=== PATIENT | male | born 1975 | race Caucasian/White ===

== ENCOUNTER 2021-06-25 14:50 | Inpatient (IN) | payer OTHER, SELFPAY ==
--- NOTE | ~2021-06-25 | CT_ITS ---
EXAMINATION: CT ANGIOGRAM OF THE CHEST WITH AND WITHOUT CONTRAST (CT PULMONARY ANGIOGRAM FOR PE) CLINICAL INFORMATION: Reason for Exam dyspnea, COVID + COMPARISON: Chest radiograph earlier today TECHNIQUE: Prior to contrast administration, noncontrast localization images were obtained. Subsequently, multidetector volumetric imaging was performed from the thoracic inlet to below the diaphragms following the administration of 65 mL Omnipaque 350 intravenous contrast. No contrast reaction reported Sagittal, coronal, and MIP oblique sagittal reformatted images were obtained on the CT workstation, uploaded to PACS, and reviewed. This CT examination was performed using dose optimization techniques as appropriate, variously including the following: *Automated exposure control *Adjustment of mA and/or kV according to patient size (this includes techniques or standardized protocols for targeted exams where dose is matched to indication/reason for exam; i.e. extremities or head) *Use of iterative reconstruction technique Total exam dose-length product 400 mGy-cm FINDINGS: QUALITY OF STUDY/CONTRAST BOLUS: Suboptimal. PULMONARY ARTERIES: No large central or large obvious segmental pulmonary emboli. THORACIC AORTA: No aneurysm or dissection. LUNG: Multifocal groundglass infiltrates are present consistent with Covid 19 infection. PLEURA: No pleural effusion or pneumothorax. MEDIASTINUM: Normal heart size. No pericardial effusion. No hilar or mediastinal lymphadenopathy. No evidence of septal bowing or right heart strain. CHEST WALL/AXILLA: No axillary or internal mammary lymphadenopathy. OSSEOUS STRUCTURES: No acute or suspicious osseous abnormality. There is mild anterior wedging of possibly T12. UPPER ABDOMEN: Unremarkable. No reflux of contrast into the hepatic veins to suggest elevated right heart pressures. CT/CT angio chest PE protocol IMPRESSION: Limited study because of poor quality bolus but no large central or large segmental emboli are seen. Multifocal groundglass infiltrates consistent with given history of Covid infection VTE: Negative, but limited
--- NOTE | ~2021-06-25 | XR_ITS ---
EXAMINATION: XR CHEST CLINICAL INFORMATION: Dyspnea. Covid infection. COMPARISON: None TECHNIQUE: Frontal view of the chest was obtained. FINDINGS: The cardiac and mediastinal contours are normal. The lung volumes are low. There are bilateral patchy infiltrates compatible with Covid infection. There is no pleural effusion or pneumothorax. Bony structures are unremarkable. XR/XR chest 1V IMPRESSION: Low lung volumes and bilateral infiltrates compatible with Covid infection.
--- NOTE | 2021-06-25 14:52 | ECG_ITS ---
Test Reason : DYSPENA Blood Pressure : / mmHG Vent. Rate : 091 BPM Atrial Rate : 091 BPM P-R Int : 162 ms QRS Dur : 088 ms QT Int : 360 ms P-R-T Axes : 023 025 008 degrees QTc Int : 442 ms Normal sinus rhythm Normal ECG No previous ECGs available Referred By: Shanta Luong Electronically Signed By:Chung Queen
[2021-06-25 14:54] VITALS: BP 114/77; BP 120/84; PULSE 70; PULSE 92; RESP 18; TEMP 37.7; O2SAT 82; O2SAT 95; BMI 29.6
--- NOTE | 2021-06-25 14:56 | ED.SOB ---
HPI - SOB/Dyspnea General Chief Complaint: Dyspnea Stated Complaint: COVID Time Seen by Provider: 06/25/21 14:51 Source: patient and EMS Mode of arrival: EMS Limitations: no limitations History of Present Illness HPI Narrative: 06/12 symptoms of COVID started 06/14 COVID + test Thursday dx with pneumonia at [facility] started on 2 INH states his walking O2 sat was 90% no oral medications Rx EMS found patient 82% on RA - up to 94% on 6L NC - vaped prior to illness he is not vaccinated MD elicited complaint: shortness of breath Pertinent past history: other (dx with COVID on 06/14) Onset (ago): day(s) (14) Context: recent illness Timing: progressively worsening Severity: severe Exacerbating factors: exertion and coughing Relieving factors: nothing Known history of: other (states he was told he had pneumonia on Thursday at [facility] given 2 INH) Associated symptoms: fever, cough and nausea/vomiting Treatment prior to arrival: bronchodilator and other (took motrin at 1pm today) Related Data Home Medications Medication Instructions Recorded Confirmed acetaminophen 500 mg tablet 500 mg PO Q8H PRN 06/25/21 06/25/21 albuterol sulfate 90 mcg/actuation 2 puff PO Q4H PRN 06/25/21 06/25/21 aerosol inhaler fluticasone furoate 100 1 puff PO BEDTIME 06/25/21 06/25/21 mcg-vilanterol 25 mcg/dose inhalation powder (Breo Ellipta) ibuprofen 200 mg tablet 600 mg PO Q8H PRN 06/25/21 06/25/21 ondansetron 4 mg disintegrating 1 tab PO Q8H PRN 06/25/21 06/25/21 tablet Allergies Allergy/AdvReac Type Severity Reaction Status Date / Time No Known Allergies Allergy Verified 06/25/21 14:53 Review of Systems Review of Systems: Constitutional : pos Fever, pos Chills ENT/Mouth : No sore throat, No Rhinorrhea, No Swallowing Difficulty Eyes: No Eye Pain, No Swelling, No Redness Cardiovascular : No Chest Pain, positive SOB, No Orthopnea, no Edema Respiratory : pos Cough, No Sputum, No Wheezing, positive dyspnea Gastrointestinal : No Nausea, No Vomiting, No Diarrhea, No abdominal Pain, No Hematochezia, No Melena Genitourinary : No Dysuria, No Urinary Frequency, No Hematuria Musculoskeletal : No joint pain, No Myalgias Skin : No Skin Lesions, No rash Neuro : pos Weakness, No Numbness, No Dizziness, No Headache Psych : No Anxiety/Panic, No Depression Heme/Lymph: No Bruising, No Lymphadenopathy Endocrine : No Polyuria, No Polydipsia All other systems reviewed and are negative [facility] Past Medical History Attestation statement: The following information was validated with the patient. Medical History Patient denies medical problems Social History Social History (Updated 06/25/21 @ 14:57 by Shanta Luong DO) Alcohol intake: current Alcohol intake frequency: a few times a week Patient Tobacco Use Status: Never used Tobacco e-Cigarette/Vaping Use: Currently Using Use of substances other than those prescribed or required for medical reasons: No Advance Directives: No Advance Directives Information Provided: No Physical Exam Vital Signs: Vital Signs: Last Vital Signs Temp 99.8 F 06/25/21 14:54 Pulse 92 06/25/21 14:54 Resp 18 06/25/21 14:54 BP 114/77 06/25/21 14:54 Pulse Ox 95 06/25/21 14:54 Oxygen Flow Rate 6 06/25/21 14:54 BMI result Body Mass Index 29.6 Appearance: Alert. Oriented X3. Mild acute distress. Eyes: Pupils equal, round and reactive to light. ENT: Pharynx normal. Neck: Normal inspection. Neck supple. CVS: Normal heart rate and rhythm. Pulses normal. Respiratory: Mild respiratory distress - tachypnea and some splinting noted. Breath sounds coarse and decreased throughout Abdomen: Soft and non-tender. Skin: Skin warm and clammy. Normal skin color. Normal skin turgor. Extremities: No lower extremity edema. No calf ttp Neuro: Oriented X 3. No motor deficit. No sensory deficit. Course Course Course Narrative: plan to admit will sign out to Dr. Ortega pending CTA MDM - SOB/Dyspnea MDM Narrative Medical decision making narrative: 45 yo male hx of vaping unvaccinated notes he developed URI symptoms on 06/12 found to be positive on 06/14 his breathing has become much worse told at [facility] on Thursday he had pneumonia and sat was 90% walking - given INH to go home with no other medications during illness. At this time found to be hypoxic requiring supplemental O2 will obtain labs, CXR for pneumonia, cultures, IV dexamethasone, he is doing well on 6L NC - empiric antibiotics he is 14 days out from onset. Planned admit given hypoxia. Lab Data Result diagrams: 06/25/21 15:27 06/25/21 15:28 Labs: Lab Results 06/25/21 06/25/21 06/25/21 Range/Units 15:27 15:27 15:27 WBC 5.7 (4.8-10.8) X10*3/uL RBC 4.56 L (4.60-5.80) X10*6/uL Hgb 13.3 L (14.0-18.0) g/dl Hct 39.9 L (42.0-52.0) % MCV 87.5 (80.0-98.0) fL MCH 29.2 (27.0-33.0) pg MCHC 33.3 (31.0-36.0) g/dl RDW 13.1 (11.0-16.0) % Plt Count 360 (160-400) X10*3/uL MPV 9.4 (9.4-12.4) fL Immature Gran % (Auto) 0.7 H (0.0-0.4) % Neut % (Auto) 76.5 H (45-73) % Lymph % (Auto) 15.9 L (20-40) % [place] % (Auto) 6.2 (2-11) % Eos % (Auto) 0.5 (0-4) % Baso % (Auto) 0.2 (0-2) % Lymph # (Auto) 0.9 L (1.2-4.9) X10*3/uL [place] # (Auto) 0.4 (0.1-1.2) X10*3/uL Eos # (Auto) 0.0 (0.0-0.4) X10*3/uL Baso # (Auto) 0.0 (0.0-0.2) X10*3/uL Abs Immat Gran (auto) 0.04 H (0.00-0.03) X10*3/uL Absolute Neuts (auto) 4.3 (2.0-8.3) x10*3/uL Absolute Nucleated RBC 0.000 (0.0-0.012) X10*3/uL Nucleated RBC % (auto) 0.0 (0.0-0.2) /100WBC PT 13.2 H (9.9-13.0) SEC INR 1.2 H (0.9-1.1) APTT 33.5 (24.1-38.0) SEC D-Dimer High Sensitivty 409 NG/ML VBG pH (7.32-7.43) VBG pCO2 mmHg VBG pO2 mmHg VBG HCO3 (22-26) mmol/L VBG O2 Saturation % VBG Base Excess mmol/L Sodium (135-145) mmol/L Potassium (3.3-5.1) mmol/L Chloride (96-108) mmol/L Carbon Dioxide (22-29) mmol/L Anion Gap (12-20) BUN (9-16) mg/dL Creatinine (0.5-1.4) mg/dL Estim Creat Clear Calc Estimated GFR Random Glucose (60-115) mg/dL Lactic Acid (0.5-2.0) mmol/L Calcium (8.4-10.2) mg/dL Magnesium (1.6-2.6) mg/dL Ferritin (20-250) ng/mL Total Bilirubin (0.0-1.0) mg/dL Direct Bilirubin (0.0-0.5) mg/dL AST (5-37) U/L ALT (0-40) U/L Alkaline Phosphatase (39-117) U/L Lactate Dehydrogenase (118-273) U/L Total Creatine Kinase (38-174) U/L Troponin I High Sens 5.7 (<3.5-35.0) ng/L C-Reactive Protein (< or = 0.50) mg/dL Total Protein (6.5-8.0) g/dL Albumin (3.5-5.0) g/dL Procalcitonin ng/mL COVID-19 (GABE) (Negative) COVID-19 Clin Com 06/25/21 06/25/21 06/25/21 Range/Units 15:27 15:27 15:28 WBC (4.8-10.8) X10*3/uL RBC (4.60-5.80) X10*6/uL Hgb (14.0-18.0) g/dl Hct (42.0-52.0) % MCV (80.0-98.0) fL MCH (27.0-33.0) pg MCHC (31.0-36.0) g/dl RDW (11.0-16.0) % Plt Count (160-400) X10*3/uL MPV (9.4-12.4) fL Immature Gran % (Auto) (0.0-0.4) % Neut % (Auto) (45-73) % Lymph % (Auto) (20-40) % [place] % (Auto) (2-11) % Eos % (Auto) (0-4) % Baso % (Auto) (0-2) % Lymph # (Auto) (1.2-4.9) X10*3/uL [place] # (Auto) (0.1-1.2) X10*3/uL Eos # (Auto) (0.0-0.4) X10*3/uL Baso # (Auto) (0.0-0.2) X10*3/uL Abs Immat Gran (auto) (0.00-0.03) X10*3/uL Absolute Neuts (auto) (2.0-8.3) x10*3/uL Absolute Nucleated RBC (0.0-0.012) X10*3/uL Nucleated RBC % (auto) (0.0-0.2) /100WBC PT (9.9-13.0) SEC INR (0.9-1.1) APTT (24.1-38.0) SEC D-Dimer High Sensitivty NG/ML VBG pH (7.32-7.43) VBG pCO2 mmHg VBG pO2 mmHg VBG HCO3 (22-26) mmol/L VBG O2 Saturation % VBG Base Excess mmol/L Sodium 138 (135-145) mmol/L Potassium 4.0 (3.3-5.1) mmol/L Chloride 103 (96-108) mmol/L Carbon Dioxide 25 (22-29) mmol/L Anion Gap 14 (12-20) BUN 13 (9-16) mg/dL Creatinine 0.78 (0.5-1.4) mg/dL Estim Creat Clear Calc 127.9 Estimated GFR > 60 Random Glucose 99 (60-115) mg/dL Lactic Acid (0.5-2.0) mmol/L Calcium 8.1 L (8.4-10.2) mg/dL Magnesium 2.0 (1.6-2.6) mg/dL Ferritin 1001 H (20-250) ng/mL Total Bilirubin 0.5 (0.0-1.0) mg/dL Direct Bilirubin 0.2 (0.0-0.5) mg/dL AST 37 (5-37) U/L ALT 19 (0-40) U/L Alkaline Phosphatase 72 (39-117) U/L Lactate Dehydrogenase 541 H (118-273) U/L Total Creatine Kinase 85 (38-174) U/L Troponin I High Sens (<3.5-35.0) ng/L C-Reactive Protein 21.17 H (< or = 0.50) mg/dL Total Protein 5.6 L (6.5-8.0) g/dL Albumin 3.3 L (3.5-5.0) g/dL Procalcitonin 0.15 ng/mL COVID-19 (GABE) Negative (Negative) COVID-19 Clin Com See Note 06/25/21 06/25/21 Range/Units 15:28 15:35 WBC (4.8-10.8) X10*3/uL RBC (4.60-5.80) X10*6/uL Hgb (14.0-18.0) g/dl Hct (42.0-52.0) % MCV (80.0-98.0) fL MCH (27.0-33.0) pg MCHC (31.0-36.0) g/dl RDW (11.0-16.0) % Plt Count (160-400) X10*3/uL MPV (9.4-12.4) fL Immature Gran % (Auto) (0.0-0.4) % Neut % (Auto) (45-73) % Lymph % (Auto) (20-40) % [place] % (Auto) (2-11) % Eos % (Auto) (0-4) % Baso % (Auto) (0-2) % Lymph # (Auto) (1.2-4.9) X10*3/uL [place] # (Auto) (0.1-1.2) X10*3/uL Eos # (Auto) (0.0-0.4) X10*3/uL Baso # (Auto) (0.0-0.2) X10*3/uL Abs Immat Gran (auto) (0.00-0.03) X10*3/uL Absolute Neuts (auto) (2.0-8.3) x10*3/uL Absolute Nucleated RBC (0.0-0.012) X10*3/uL Nucleated RBC % (auto) (0.0-0.2) /100WBC PT (9.9-13.0) SEC INR (0.9-1.1) APTT (24.1-38.0) SEC D-Dimer High Sensitivty NG/ML VBG pH 7.46 H (7.32-7.43) VBG pCO2 33 mmHg VBG pO2 106 mmHg VBG HCO3 24 (22-26) mmol/L VBG O2 Saturation 98.0 % VBG Base Excess 1.4 mmol/L Sodium (135-145) mmol/L Potassium (3.3-5.1) mmol/L Chloride (96-108) mmol/L Carbon Dioxide (22-29) mmol/L Anion Gap (12-20) BUN (9-16) mg/dL Creatinine (0.5-1.4) mg/dL Estim Creat Clear Calc Estimated GFR Random Glucose (60-115) mg/dL Lactic Acid 1.0 (0.5-2.0) mmol/L Calcium (8.4-10.2) mg/dL Magnesium (1.6-2.6) mg/dL Ferritin (20-250) ng/mL Total Bilirubin (0.0-1.0) mg/dL Direct Bilirubin (0.0-0.5) mg/dL AST (5-37) U/L ALT (0-40) U/L Alkaline Phosphatase (39-117) U/L Lactate Dehydrogenase (118-273) U/L Total Creatine Kinase (38-174) U/L Troponin I High Sens (<3.5-35.0) ng/L C-Reactive Protein (< or = 0.50) mg/dL Total Protein (6.5-8.0) g/dL Albumin (3.5-5.0) g/dL Procalcitonin ng/mL COVID-19 (GABE) (Negative) COVID-19 Clin Com ECG Data Attestation: I personally reviewed and interpreted this ECG as follows: ECG interpretation date: 06/25/21 ECG interpretation time: 15:16 Interpretation: Rate: 91 Rhythm: NSR [place]: normal Normal P waves. Normal [place]. Normal QRS complex. ST T wave : normal no KORY qTC: normal prior studies: no acute ischemia The study has been interpreted contemporaneously by me. . Critical Care Time Critical Care Time Critical Care Time: Yes Total Critical Care Time: 45 Attestation: review of records, supplemental O2 I attest to this time spent taking care of the patient Discharge Plan Discharge Clinical Impression: Pneumonia due to 2019-nCoV, Hypoxia Patient Disposition: Admitted As Inpatient
[2021-06-25 15:37] LABS: MANUAL DIFF FLAG NO
[2021-06-25 15:42] LABS: Basophils Percent Auto 0.2 % (0-2); Eosinophils Percent Auto 0.5 % (0-4); Hematocrit 39.9 % (42.0-52.0); Hemoglobin 13.3 g/dl (14.0-18.0); Imm Gran Abs Auto 0.04 X10*3/uL (0.00-0.03); Imm Gran Pct Auto 0.7 % (0.0-0.4); Lymphocytes Absolute Auto 0.9 X10*3/uL (1.2-4.9); Lymphocytes Percent Auto 15.9 % (20-40); Mean Corpuscular HGB Conc 33.3 g/dl (31.0-36.0); Mean Corpuscular Hemoglobin 29.2 pg (27.0-33.0); Mean Corpuscular Volume 87.5 fL (80.0-98.0); Mean Platelet Volume 9.4 fL (9.4-12.4); Monocytes Absolute Auto 0.4 X10*3/uL (0.1-1.2); Monocytes Percent Auto 6.2 % (2-11); Neutrophils Absolute Auto 4.3 x10*3/uL (2.0-8.3); Neutrophils Percent Auto 76.5 % (45-73); Platelet Count 360 X10*3/uL (160-400); Red Blood Count 4.56 X10*6/uL (4.60-5.80); Red Cell Distribution Width 13.1 % (11.0-16.0); White Blood Count 5.7 X10*3/uL (4.8-10.8)
[2021-06-25 15:43] LABS: VBG Base Excess 1.4 mmol/L; VBG HCO3 24 mmol/L (22-26); VBG pCO2 33 mmHg; VBG pH 7.46 (7.32-7.43); VBG pO2 106 mmHg
[2021-06-25 15:46] LABS: Venous Blood Gas Refer to POC result
[2021-06-25 15:47] LABS: D Dimer High Sensitivity 409 NG/ML
[2021-06-25 15:58] LABS: COVID-19 Test Negative (Negative); IDNOW Serial# 08D9AD1C
[2021-06-25 16:02] LABS: Troponin-I High Sensitivity 5.7 ng/L (<3.5-35.0)
[2021-06-25 16:03] LABS: INTERNATIONAL NORM RATIO 1.2 (0.9-1.1); Prothrombin Time 13.2 SEC (9.9-13.0)
[2021-06-25 16:04] LABS: Alanine Aminotransferase 19 U/L (0-40); Albumin Level 3.3 g/dL (3.5-5.0); Alkaline Phosphatase 72 U/L (39-117); Anion Gap 14 (12-20); Aspartate Amino Transferase 37 U/L (5-37); Bilirubin Direct 0.2 mg/dL (0.0-0.5); Bilirubin Total 0.5 mg/dL (0.0-1.0); Blood Urea Nitrogen 13 mg/dL (9-16); C Reactive Protein 21.17 mg/dL (< or = 0.50); Calcium 8.1 mg/dL (8.4-10.2); Carbon Dioxide 25 mmol/L (22-29); Chloride 103 mmol/L (96-108); Creatinine Clr Calc Pharmacy 127.9; Estimated Glomerular Filt Rate > 60; Glucose Random 99 mg/dL (60-115); Sodium 138 mmol/L (135-145); Total Protein 5.6 g/dL (6.5-8.0)
[2021-06-25 16:05] LABS: Partial Thromboplastin Time 33.5 SEC (24.1-38.0)
[2021-06-25 16:13] LABS: Lactate Dehydrogenase 541 U/L (118-273)
[2021-06-25 16:18] LABS: Procalcitonin 0.15 ng/mL
[2021-06-25] MEDS: dexAMETHasone sod phosphate 4 MG/ML VIAL 6 MG IVPUSH (16:19)
[2021-06-25 16:20] LABS: Ferritin 1001 ng/mL (20-250)
[2021-06-25] MEDS: cefTRIAXone sodium 1 GM in 0.9 % Sodium Chloride 50 ML IV (16:21)
--- NOTE | 2021-06-25 16:24 | PHA.MEDREC ---
Pharmacy Consult ? Medication Reconciliation Pharmacy has completed the medication reconciliation. There are no remarkable issues for provider's attention. Shawnee Love, MarcellaD
[2021-06-25 16:27] VITALS: BP 113/72; PULSE 79; RESP 18; TEMP 37.1; O2SAT 95
--- NOTE | 2021-06-25 17:07 | PC.NURSE ---
pt continues to rest in bed. NC reduced to 4L p/t CTA of chest. Skin pwd. unlabored resp at rest in bed.
[2021-06-25] MEDS: iohexoL 350 MG/ML 100 ML INFUS..BTL IV (17:23)
[2021-06-25] MEDS: Azithromycin 500 MG in 0.9 % Sodium Chloride 250 ML 125 MG IV (17:58)
[2021-06-25 17:59] VITALS: BP 118/81; PULSE 76; RESP 18; TEMP 37.1; O2SAT 95
--- NOTE | 2021-06-25 18:24 | PC.NURSE ---
pt positioned prone. tolerating well.
--- NOTE | 2021-06-25 19:55 | P.HPHOSP_ITS ---
History of Present Illness Date of Service: 06/25/21 Chief Complaint: SOB 45-year-old male with no significant past medical history who tested positive for COVID-19 on presented to the hospital today with a chief complaint of shortness of breath/ hypoxia. Patient reported that he was initially doing okay but lately he become more and more short of breath and extremely tired associated dry cough. Any checked his oxygen at home med was in 70s; hence decided to come to the hospital for furth er evaluation. Denies any chest pain palpitations lightheadedness or dizziness. Denies any fever chills. Denies any nausea vomiting diarrhea. Denies any change in his sense of taste or smell. Review of all other systems is negative except mentioned above ER course: Per ER team patient on presentation noted to be saturating 82% on room air; placed on supplemental oxygen with improvement in oxygenation to mid 90s; patient was not in respiratory distress; CT chest showed no evidence of pulmonary embolism but noted COVID pneumonia. Given dexamethasone. Admitted for further management. [facility] Medical History Patient denies medical problems Pertinent family history: reviewed Social History Household Members: Significant Other Housing: House Do you presently have visiting nurse or other home services: No Alcohol intake: current Alcohol intake frequency: a few times a week Patient Tobacco Use Status: Never used Tobacco e-Cigarette/Vaping Use: Currently Using service: No Current occupational status: employed Meds Allergies Allergy/AdvReac Type Severity Reaction Status Date / Time No Known Allergies Allergy Verified 06/25/21 14:53 Active Medications: Current Medications Acetaminophen (Acetaminophen 325 Mg Tablet) 650 mg PO Q6H PRN PRN Reason: Pain, Mild (Pain Scale 1-3) Enoxaparin Sodium (Enoxaparin Sodium 40 Mg/0.4 Ml Syringe) 40 mg SUBCUT Q24H YAMILKA Vancomycin HCl 1,000 mg/ (Sodium Chloride) 270 mls @ 270 mls/hr IV Q12H YAMILKA Piperacillin Sod/Tazobactam (Sod 3.375 gm/ Sodium Chloride) 50 mls @ 100 mls/hr IV Q6H YAMILKA Melatonin (Melatonin 3 Mg Tablet) 6 mg PO BEDTIME PRN PRN Reason: Insomnia Morphine Sulfate (Morphine Sulfate 4 Mg/Ml Cartridge) 1 mg IVPUSH Q4H PRN; Protocol PRN Reason: Pain, SOB Pharmacy Consult (Consult Rx Perform Med Rec) 1 each MISCELLANE ONCE PRN PRN Reason: Consult order Pharmacy Consult (Consult Rx Vancomycin Dosing) 1 each MISCELLANE DAILY PRN PRN Reason: Consult order Senna (Sennosides 8.6 Mg Tablet) 17.2 mg PO BEDTIME PRN PRN Reason: Constipation Sodium Chloride (0.9 % Sodium Chloride Flush 3 Ml Syringe) 3 ml IVFLUSH [facility] Home Medications Medication Instructions Recorded Confirmed Last Taken Type acetaminophen 500 mg tablet 500 mg PO Q8H PRN 06/25/21 06/25/21 06/25/21 History albuterol sulfate 90 mcg/actuation 2 puff PO Q4H PRN 06/25/21 06/25/21 Unknown History aerosol inhaler fluticasone furoate 100 1 puff PO BEDTIME 06/25/21 06/25/21 06/24/21 History mcg-vilanterol 25 mcg/dose inhalation powder (Breo Ellipta) ibuprofen 200 mg tablet 600 mg PO Q8H PRN 06/25/21 06/25/21 06/25/21 History ondansetron 4 mg disintegrating 1 tab PO Q8H PRN 06/25/21 06/25/21 Unknown History tablet Physical Exam Vital Signs and Narrative: Vital Signs: Last Vital Signs Temp 98.8 F 06/25/21 17:59 Pulse 76 06/25/21 17:59 Resp 18 06/25/21 17:59 BP 118/81 06/25/21 17:59 Pulse Ox 95 06/25/21 17:59 Oxygen Flow Rate 6 06/25/21 14:54 BMI result Body Mass Index 29.6 Gen: Appears be in no acute distress HEENT: NCAT, Moist mucosa. Pulmonary: coarse breath sounds, fair air entry CVS: Normal S1-S2 Abdomen: BS+, Soft, Nontender Extremities: Warm well perfused Neuro: Alert and awake. Results Labs CBC and Chem 7: 06/29/21 06:15 06/29/21 06:15 Labs: Laboratory Results - last 24 hr 06/25/21 06/25/21 06/25/21 15:27 15:27 15:27 MCV 87.5 MCH 29.2 MCHC 33.3 RDW 13.1 Plt Count 360 MPV 9.4 Immature Gran % (Auto) 0.7 H Neut % (Auto) 76.5 H Lymph % (Auto) 15.9 L [place] % (Auto) 6.2 Eos % (Auto) 0.5 Baso % (Auto) 0.2 Lymph # (Auto) 0.9 L [place] # (Auto) 0.4 Eos # (Auto) 0.0 Baso # (Auto) 0.0 Abs Immat Gran (auto) 0.04 H Absolute Neuts (auto) 4.3 Absolute Nucleated RBC 0.000 Nucleated RBC % (auto) 0.0 PT 13.2 H INR 1.2 H APTT 33.5 D-Dimer High Sensitivty 409 VBG pH VBG pCO2 VBG pO2 VBG HCO3 VBG O2 Saturation VBG Base Excess Anion Gap Estim Creat Clear Calc Estimated GFR Random Glucose Lactic Acid Calcium Magnesium Ferritin Total Bilirubin Direct Bilirubin AST ALT Alkaline Phosphatase Lactate Dehydrogenase Total Creatine Kinase Troponin I High Sens 5.7 C-Reactive Protein Total Protein Albumin Procalcitonin COVID-19 (GABE) COVID-Fluther 06/25/21 06/25/21 06/25/21 15:27 15:27 15:28 MCV MCH MCHC RDW Plt Count MPV Immature Gran % (Auto) Neut % (Auto) Lymph % (Auto) [place] % (Auto) Eos % (Auto) Baso % (Auto) Lymph # (Auto) [place] # (Auto) Eos # (Auto) Baso # (Auto) Abs Immat Gran (auto) Absolute Neuts (auto) Absolute Nucleated RBC Nucleated RBC % (auto) PT INR APTT D-Dimer High Sensitivty VBG pH VBG pCO2 VBG pO2 VBG HCO3 VBG O2 Saturation VBG Base Excess Anion Gap 14 Estim Creat Clear Calc 127.9 Estimated GFR > 60 Random Glucose 99 Lactic Acid Calcium 8.1 L Magnesium 2.0 Ferritin 1001 H Total Bilirubin 0.5 Direct Bilirubin 0.2 AST 37 ALT 19 Alkaline Phosphatase 72 Lactate Dehydrogenase 541 H Total Creatine Kinase 85 Troponin I High Sens C-Reactive Protein 21.17 H Total Protein 5.6 L Albumin 3.3 L Procalcitonin 0.15 COVID-19 (GABE) Negative COVID-19 Clin Com See Note 06/25/21 06/25/21 15:28 15:35 MCV MCH MCHC RDW Plt Count MPV Immature Gran % (Auto) Neut % (Auto) Lymph % (Auto) [place] % (Auto) Eos % (Auto) Baso % (Auto) Lymph # (Auto) [place] # (Auto) Eos # (Auto) Baso # (Auto) Abs Immat Gran (auto) Absolute Neuts (auto) Absolute Nucleated RBC Nucleated RBC % (auto) PT INR APTT D-Dimer High Sensitivty VBG pH 7.46 H VBG pCO2 33 VBG pO2 106 VBG HCO3 24 VBG O2 Saturation 98.0 VBG Base Excess 1.4 Anion Gap Estim Creat Clear Calc Estimated GFR Random Glucose Lactic Acid 1.0 Calcium Magnesium Ferritin Total Bilirubin Direct Bilirubin AST ALT Alkaline Phosphatase Lactate Dehydrogenase Total Creatine Kinase Troponin I High Sens C-Reactive Protein Total Protein Albumin Procalcitonin COVID-19 (GABE) COVID-19 Clin Com Imaging Radiologist's Impressions: Impressions Chest X-Ray 06/25/21 15:35 IMPRESSION: Low lung volumes and bilateral infiltrates compatible with Covid infection. Chest CTA 06/25/21 17:32 IMPRESSION: Limited study because of poor quality bolus but no large central or large segmental emboli are seen. Multifocal groundglass infiltrates consistent with given history of Covid infection VTE: Negative, but limited Assessment and Plan (1) Pneumonia due to 2019-nCoV: Status: Acute (2) Hypoxia: Status: Acute 45-year-old male with no significant past medical history was tested positive for COVID-19 as outpatient presented to the hospital today with a chief complaint of shortness of breath/ hypoxia; noted to have COVID-19 pneumonia. Admitted for further management. Acute hypoxic respiratory failure: In the setting of COVID-19 pneumonia. Placed on supplemental oxygen. Currently not in respiratory distress. Supportive care. COVID-19 pneumonia: Continue ceftriaxone and azithromycin. Patient also started on dexamethasone. Id consult for further recommendations. DVT prophylaxis: Lovenox Code status: Full code Quality Stroke Does the patient have a stroke diagnosis?: No VTE Prior VTE?: No VTE Risk Level:: Medical - moderate - high VTE Device Contraindication: Treatment Not Indicated VTE Drug Contraindication: N/A - Med Ordered
[2021-06-25] MEDS: Piperacillin Sodium/Tazobactam 3.375 GM in 0.9 % Sodium Chloride 50 ML IV (21:14)
[2021-06-25] MEDS: vancomycin HCL 1,250 MG in 0.9 % Sodium Chloride 250 ML 166.67 MG IV (21:15)
[2021-06-25] MEDS: Enoxaparin Sodium 40 MG/0.4 ML SYRINGE SUBCUT (21:16)
[2021-06-26] MEDS: 0.9 % Sodium Chloride Flush 3 ML SYRINGE IVFLUSH ×5 (01:09→23:52)
[2021-06-26 03:27] VITALS: BP 128/97; PULSE 64; RESP 27; TEMP 36.7; O2SAT 94
--- NOTE | 2021-06-26 03:51 | PC.NURSE ---
Hospitalist and RT notified that pt desatted to low to mid 80s with mild exertion and was unable to recover while on a NC @ 6 lpm. Pt switched to a venti @ 8 lpm and 40%, increasing to 89%.
--- NOTE | 2021-06-26 04:29 | PC.NURSE ---
The pt stood at the bedside to void, on room air, and when he got back into bed his O2 sat had dropped to 85%. As he got back into bed and placed the nasal cannula back on at 4L his O2 sat's remained 85% for 5-10 minutes, prompting me to initiate venti mask at 8L/40%. MD Berg was notified who requested pt be placed on CPAP which pt said he is supposed to wear at night. RT came to bedside and placed pt on Mc at 14L, humidified. Pt sat's are now 97%, RR 20 and non-labored.
[2021-06-26 07:16] VITALS: BP 148/99; PULSE 75; RESP 22; TEMP 37; O2SAT 92
[2021-06-26 08:01] LABS: Hemoglobin 13.8 g/dl (14.0-18.0); Imm Gran Abs Auto 0.04 X10*3/uL (0.00-0.03); Imm Gran Pct Auto 0.8 % (0.0-0.4); Lymphocytes Absolute Auto 0.9 X10*3/uL (1.2-4.9); Lymphocytes Percent Auto 18.9 % (20-40); Mean Corpuscular HGB Conc 32.9 g/dl (31.0-36.0); Mean Corpuscular Hemoglobin 28.9 pg (27.0-33.0); Mean Corpuscular Volume 88.1 fL (80.0-98.0); Mean Platelet Volume 9.1 fL (9.4-12.4); Monocytes Absolute Auto 0.3 X10*3/uL (0.1-1.2); Monocytes Percent Auto 6.8 % (2-11); Neutrophils Absolute Auto 3.5 x10*3/uL (2.0-8.3); Neutrophils Percent Auto 73.5 % (45-73); Platelet Count 408 X10*3/uL (160-400); Red Blood Count 4.77 X10*6/uL (4.60-5.80); Red Cell Distribution Width 13.1 % (11.0-16.0); SCAN SMEAR FLAG 1; White Blood Count 4.7 X10*3/uL (4.8-10.8)
[2021-06-26 08:18] LABS: Anion Gap 15 (12-20); Blood Urea Nitrogen 15 mg/dL (9-16); Calcium 8.6 mg/dL (8.4-10.2); Carbon Dioxide 26 mmol/L (22-29); Chloride 105 mmol/L (96-108); Creatinine Clr Calc Pharmacy 131.2; Estimated Glomerular Filt Rate > 60; Glucose Random 149 mg/dL (60-115); Potassium 4.4 mmol/L (3.3-5.1); Sodium 142 mmol/L (135-145)
[2021-06-26] MEDS: dexAMETHasone 6 MG TABLET PO (08:19)
[2021-06-26 08:30] LABS: MANUAL DIFF FLAG SCAN
[2021-06-26 08:31] LABS: SLIDE REVIEW VERIFIED
--- NOTE | 2021-06-26 11:22 | MHC.CM.PN ---
Patient lives in a house with his Girlfriend/Little and he is functionally independent. Home no services is the goal for dc and CM has initiated and will follow for dc planning.PCP is DR. Vincent Antonio.
--- NOTE | 2021-06-26 12:51 | HO.PM.IMPN ---
Subjective Subjective Date of Service: 06/26/21 Interval History: cc: sob interval history: still sob Cardiovascular Cardiovascular: Reports no additional cardiovascular complaints Gastrointestinal Gastrointestinal: Reports no additional gastrointestinal complaints Physical Exam Vital Signs: Vital Signs: Last Vital Signs Temp 98.6 F 06/26/21 07:16 Pulse 75 06/26/21 07:16 Resp 22 H 06/26/21 07:16 BP 148/99 H 06/26/21 07:16 Pulse Ox 92 06/26/21 07:16 Oxygen Flow Rate 6 06/25/21 14:54 BMI result Body Mass Index 29.6 General: AO X 3, dyspneic, diaphoretic Resp: Crackles bilateral, mild accessory muscles used CVS: S1,S2,RRR GI: soft, non tender, non distended Neuro: motor grossly intact, alert Psych: appropriate affect, appropriate insight Objective Data Active Medications Acetaminophen (Acetaminophen 325 Mg Tablet) 650 mg PO Q6H PRN PRN Reason: Pain, Mild (Pain Scale 1-3) Albuterol Sulfate (Albuterol Sulfate 90 Mcg 8 Gm Inhaler) 2 puff INHALE Q4H PRN PRN Reason: dyspnea Dexamethasone (Dexamethasone 6 Mg Tablet) 6 mg PO DAILY [facility] Last Admin: 06/26/21 08:19 Dose: 6 mg Documented by: CHON Enoxaparin Sodium (Enoxaparin Sodium 40 Mg/0.4 Ml Syringe) 40 mg SUBCUT Q24H [facility] Last Admin: 06/25/21 21:16 Dose: 40 mg Documented by: XIOMY Melatonin (Melatonin 3 Mg Tablet) 6 mg PO BEDTIME PRN PRN Reason: Insomnia Morphine Sulfate (Morphine Sulfate 4 Mg/Ml Cartridge) 1 mg IVPUSH Q4H PRN; Protocol PRN Reason: Pain, SOB Pharmacy Consult (Consult Rx Perform Med Rec) 1 each MISCELLANE ONCE PRN PRN Reason: Consult order Pharmacy Consult (Consult Rx Vancomycin Dosing) 1 each MISCELLANE DAILY PRN PRN Reason: Consult order Senna (Sennosides 8.6 Mg Tablet) 17.2 mg PO BEDTIME PRN PRN Reason: Constipation Sodium Chloride (0.9 % Sodium Chloride Flush 3 Ml Syringe) 3 ml IVFLUSH QSHIFT [facility] Last Admin: 06/26/21 07:19 Dose: 3 ml Documented by: HO.COOPEB Labs CBC & Chem 7: 06/26/21 07:48 06/26/21 07:48 Labs: Laboratory Results - last 24 hr 06/25/21 06/25/21 06/25/21 15:27 15:27 15:27 MCV 87.5 MCH 29.2 MCHC 33.3 RDW 13.1 Plt Count 360 MPV 9.4 Immature Gran % (Auto) 0.7 H Neut % (Auto) 76.5 H Lymph % (Auto) 15.9 L [place] % (Auto) 6.2 Eos % (Auto) 0.5 Baso % (Auto) 0.2 Lymph # (Auto) 0.9 L [place] # (Auto) 0.4 Eos # (Auto) 0.0 Baso # (Auto) 0.0 Abs Immat Gran (auto) 0.04 H Absolute Neuts (auto) 4.3 Absolute Nucleated RBC 0.000 Nucleated RBC % (auto) 0.0 Smear Tech's Comments PT 13.2 H INR 1.2 H APTT 33.5 D-Dimer High Sensitivty 409 VBG pH VBG pCO2 VBG pO2 VBG HCO3 VBG O2 Saturation VBG Base Excess Anion Gap Estim Creat Clear Calc Estimated GFR Random Glucose Lactic Acid Calcium Magnesium Ferritin Total Bilirubin Direct Bilirubin AST ALT Alkaline Phosphatase Lactate Dehydrogenase Total Creatine Kinase Troponin I High Sens 5.7 C-Reactive Protein Total Protein Albumin Procalcitonin COVID-19 ([facility]) COVID-19 Clin Com 06/25/21 06/25/21 06/25/21 15:27 15:27 15:28 MCV MCH MCHC RDW Plt Count MPV Immature Gran % (Auto) Neut % (Auto) Lymph % (Auto) [place] % (Auto) Eos % (Auto) Baso % (Auto) Lymph # (Auto) [place] # (Auto) Eos # (Auto) Baso # (Auto) Abs Immat Gran (auto) Absolute Neuts (auto) Absolute Nucleated RBC Nucleated RBC % (auto) Smear Tech's Comments PT INR APTT D-Dimer High Sensitivty VBG pH VBG pCO2 VBG pO2 VBG HCO3 VBG O2 Saturation VBG Base Excess Anion Gap 14 Estim Creat Clear Calc 127.9 Estimated GFR > 60 Random Glucose 99 Lactic Acid Calcium 8.1 L Magnesium 2.0 Ferritin 1001 H Total Bilirubin 0.5 Direct Bilirubin 0.2 AST 37 ALT 19 Alkaline Phosphatase 72 Lactate Dehydrogenase 541 H Total Creatine Kinase 85 Troponin I High Sens C-Reactive Protein 21.17 H Total Protein 5.6 L Albumin 3.3 L Procalcitonin 0.15 COVID-19 ([facility]) Negative COVID-19 Clin Com See Note 06/25/21 06/25/21 06/26/21 15:28 15:35 07:48 MCV 88.1 MCH 28.9 MCHC 32.9 RDW 13.1 Plt Count 408 H MPV 9.1 L Immature Gran % (Auto) 0.8 H Neut % (Auto) 73.5 H Lymph % (Auto) 18.9 L [place] % (Auto) 6.8 Eos % (Auto) 0.0 Baso % (Auto) 0.0 Lymph # (Auto) 0.9 L [place] # (Auto) 0.3 Eos # (Auto) 0.0 Baso # (Auto) 0.0 Abs Immat Gran (auto) 0.04 H Absolute Neuts (auto) 3.5 Absolute Nucleated RBC 0.000 Nucleated RBC % (auto) 0.0 Smear Tech's Comments VERIFIED PT INR APTT D-Dimer High Sensitivty VBG pH 7.46 H VBG pCO2 33 VBG pO2 106 VBG HCO3 24 VBG O2 Saturation 98.0 VBG Base Excess 1.4 Anion Gap Estim Creat Clear Calc Estimated GFR Random Glucose Lactic Acid 1.0 Calcium Magnesium Ferritin Total Bilirubin Direct Bilirubin AST ALT Alkaline Phosphatase Lactate Dehydrogenase Total Creatine Kinase Troponin I High Sens C-Reactive Protein Total Protein Albumin Procalcitonin COVID-19 ([facility]) COVID-19 Clin Com 06/26/21 07:48 MCV MCH MCHC RDW Plt Count MPV Immature Gran % (Auto) Neut % (Auto) Lymph % (Auto) [place] % (Auto) Eos % (Auto) Baso % (Auto) Lymph # (Auto) [place] # (Auto) Eos # (Auto) Baso # (Auto) Abs Immat Gran (auto) Absolute Neuts (auto) Absolute Nucleated RBC Nucleated RBC % (auto) Smear Tech's Comments PT INR APTT D-Dimer High Sensitivty VBG pH VBG pCO2 VBG pO2 VBG HCO3 VBG O2 Saturation VBG Base Excess Anion Gap 15 Estim Creat Clear Calc 131.2 Estimated GFR > 60 Random Glucose 149 H D Lactic Acid Calcium 8.6 D Magnesium Ferritin Total Bilirubin Direct Bilirubin AST ALT Alkaline Phosphatase Lactate Dehydrogenase Total Creatine Kinase Troponin I High Sens C-Reactive Protein Total Protein Albumin Procalcitonin COVID-19 ([facility]) COVID-19 Clin Com Assessment and Plan (1) Pneumonia due to 2019-nCoV: Status: Acute Assessment and Plan: 45M with known COVID, presented with sob Acute hypoxic respiratory failure secondary to COVID pneumonia Continue dexamethasone O2 support Follow-up ID No evidence of bacterial superinfection will discontinue antibiotics DVT prophylaxis with Lovenox Quality Stroke Does the patient have a stroke diagnosis?: No VTE Prior VTE?: No VTE Risk Level:: Medical - moderate - high VTE Device Contraindication: Treatment Not Indicated VTE Drug Contraindication: N/A - Med Ordered
--- NOTE | 2021-06-26 13:13 | P.CNID_ITS ---
History of Present Illness Data of Consult Service Date: 06/26/21 Requesting physician: Raymond Ospina Primary Care Provider: MD LUZ Thakur Reason for consult: shortness of breath He presents with shortness of breath and cough. He started symptoms fourteen days ago and was at [facility] He was given oxygen He has no oxygen saturation 70% He has ground glass opacities Review of Systems Review of Systems: Yes all other systems are reviewed and are negative PMFSH Past Medical History Medical History Patient denies medical problems Family History Family history: reviewed and not pertinent Social History Social History Household Members: Significant Other Housing: House Do you presently have visiting nurse or other home services: No Alcohol intake: current Alcohol intake frequency: a few times a week Patient Tobacco Use Status: Never used Tobacco e-Cigarette/Vaping Use: Currently Using service: No Current occupational status: employed [employer] Allergies Allergy/AdvReac Type Severity Reaction Status Date / Time No Known Allergies Allergy Verified 06/25/21 14:53 Active Medications: Current Medications Acetaminophen (Acetaminophen 325 Mg Tablet) 650 mg PO Q6H PRN PRN Reason: Pain, Mild (Pain Scale 1-3) Albuterol Sulfate (Albuterol Sulfate 90 Mcg 8 Gm Inhaler) 2 puff INHALE Q4H PRN PRN Reason: dyspnea Dexamethasone (Dexamethasone 6 Mg Tablet) 6 mg PO DAILY [facility] Last Admin: 06/26/21 08:19 Dose: 6 mg Documented by: Enoxaparin Sodium (Enoxaparin Sodium 40 Mg/0.4 Ml Syringe) 40 mg SUBCUT Q24H [facility] Last Admin: 06/25/21 21:16 Dose: 40 mg Documented by: Melatonin (Melatonin 3 Mg Tablet) 6 mg PO BEDTIME PRN PRN Reason: Insomnia Morphine Sulfate (Morphine Sulfate 4 Mg/Ml Cartridge) 1 mg IVPUSH Q4H PRN; Protocol PRN Reason: Pain, SOB Pharmacy Consult (Consult Rx Perform Med Rec) 1 each MISCELLANE ONCE PRN PRN Reason: Consult order Pharmacy Consult (Consult Rx Vancomycin Dosing) 1 each MISCELLANE DAILY PRN PRN Reason: Consult order Senna (Sennosides 8.6 Mg Tablet) 17.2 mg PO BEDTIME PRN PRN Reason: Constipation Sodium Chloride (0.9 % Sodium Chloride Flush 3 Ml Syringe) 3 ml IVFLUSH QSHIFT [facility] Last Admin: 06/26/21 07:19 Dose: 3 ml Documented by: Home Medications Medication Instructions Recorded Confirmed Last Taken Type acetaminophen 500 mg tablet 500 mg PO Q8H PRN 06/25/21 06/25/21 06/25/21 History albuterol sulfate 90 mcg/actuation 2 puff PO Q4H PRN 06/25/21 06/25/21 Unknown History aerosol inhaler fluticasone furoate 100 1 puff PO BEDTIME 06/25/21 06/25/21 06/24/21 History mcg-vilanterol 25 mcg/dose inhalation powder (Breo Ellipta) ibuprofen 200 mg tablet 600 mg PO Q8H PRN 06/25/21 06/25/21 06/25/21 History ondansetron 4 mg disintegrating 1 tab PO Q8H PRN 06/25/21 06/25/21 Unknown History tablet Physical Exam Vital Signs: Vital Signs: Last Vital Signs Temp 98.6 F 06/26/21 07:16 Pulse 75 06/26/21 07:16 Resp 22 H 06/26/21 07:16 BP 148/99 H 06/26/21 07:16 Pulse Ox 92 06/26/21 07:16 Oxygen Flow Rate 6 06/25/21 14:54 BMI result Body Mass Index 29.6 Const: General: cooperative Eyes: General: appearance normal, both eyes and all related structures Pupils: Equal, round and reactive pupils present Resp: Effort & Inspection: normal respiratory effort and able to speak in complete sentences Cardio: Rate: regular rate Rhythm: regular rhythm GI: Palpation (GI): Soft to palpation and nontender Neuro: Cranial nerves: Yes Equal, round and reactive pupils present Extrem: General: Yes normal to inspection Results Labs CBC & Chem 7: 06/29/21 06:15 06/29/21 06:15 Labs: Short CBC 06/25/21 06/25/21 06/26/21 Range/Units 15:27 15:27 07:48 WBC 5.7 4.7 L (4.8-10.8) X10*3/uL Hgb 13.3 L 13.8 L (14.0-18.0) g/dl Hct 39.9 L 42.0 (42.0-52.0) % Plt Count 360 408 H (160-400) X10*3/uL Procalcitonin 0.15 ng/mL BMP 06/25/21 06/26/21 15:28 07:48 Sodium 138 142 Potassium 4.0 4.4 Chloride 103 105 Carbon Dioxide 25 26 BUN 13 15 Creatinine 0.78 0.76 Calcium 8.1 L 8.6 D Cardiac Enzymes 06/25/21 Range/Units 15:28 Total Creatine Kinase 85 (38-174) U/L Liver Function 06/25/21 Range/Units 15:28 Total Bilirubin 0.5 (0.0-1.0) mg/dL Direct Bilirubin 0.2 (0.0-0.5) mg/dL AST 37 (5-37) U/L ALT 19 (0-40) U/L Alkaline Phosphatase 72 (39-117) U/L Albumin 3.3 L (3.5-5.0) g/dL Assessment and Plan (1) Pneumonia due to 2019-nCoV: Status: Acute He is fourteen days out from initial symptoms He has persistent hypoxia There doesnt seem to be opportunistic infection as he has no sputum production and dont see OI (2) Hypoxia: Status: Acute Would continue oxygen as needed No antibiotics at this time as no signs of bacterial or fungal pneumonia Would consider [facility] steroids ?early lung fibrosis/scarring post COVID and involve Pulmonary
[2021-06-26 14:16] VITALS: BP 118/74; PULSE 79; RESP 24; TEMP 36.9; O2SAT 92
[2021-06-26 16:55] VITALS: BP 139/85; PULSE 93; RESP 19; TEMP 36.9; O2SAT 93
[2021-06-26] MEDS: guaiFENesin 200 MG/10 ML 10 ML LIQUID PO ×2 (17:15→23:52)
[2021-06-26 19:42] VITALS: BP 139/91; PULSE 70; RESP 18; TEMP 37.1; O2SAT 97
[2021-06-26] MEDS: Enoxaparin Sodium 40 MG/0.4 ML SYRINGE SUBCUT (21:13)
[2021-06-26] MEDS: vancomycin HCL 1,250 MG in 0.9 % Sodium Chloride 250 ML 166.67 MG IV (21:13)
[2021-06-26] MEDS: Melatonin 3 MG TABLET 6 MG PO (23:52)
[2021-06-27] VITALS (7 sets, daily range): BP systolic 111–131; BP diastolic 52–82; PULSE 19–76; RESP 18–20; TEMP 35.5–37; O2SAT 94–97
[2021-06-27 06:23] LABS: Hematocrit 41.6 % (42.0-52.0); Hemoglobin 13.5 g/dl (14.0-18.0); Mean Corpuscular HGB Conc 32.5 g/dl (31.0-36.0); Mean Corpuscular Volume 89.3 fL (80.0-98.0); Mean Platelet Volume 9.2 fL (9.4-12.4); Platelet Count 488 X10*3/uL (160-400); Red Blood Count 4.66 X10*6/uL (4.60-5.80); White Blood Count 10.4 X10*3/uL (4.8-10.8)
[2021-06-27 06:45] LABS: Anion Gap 13 (12-20); Blood Urea Nitrogen 22 mg/dL (9-16); C Reactive Protein 4.94 mg/dL (< or = 0.50); Calcium 8.7 mg/dL (8.4-10.2); Carbon Dioxide 29 mmol/L (22-29); Chloride 106 mmol/L (96-108); Creatinine Clr Calc Pharmacy 123.1; Estimated Glomerular Filt Rate > 60; Glucose Fasting 139 mg/dL (60-99); Lactate Dehydrogenase 413 U/L (118-273); Potassium 4.6 mmol/L (3.3-5.1); Sodium 143 mmol/L (135-145)
[2021-06-27 07:00] LABS: D Dimer High Sensitivity 210 NG/ML
[2021-06-27] MEDS: dexAMETHasone 6 MG TABLET PO (10:31)
--- NOTE | 2021-06-27 11:05 | HO.PM.IMPN ---
Subjective Subjective Date of Service: 06/27/21 Interval History: cc: sob interval hsitory: weak, improving sob Cardiovascular Cardiovascular: Reports no additional cardiovascular complaints Respiratory Respiratory: Reports no additional respiratory complaints Physical Exam Vital Signs: Vital Signs: Last Vital Signs Temp 97 F 06/27/21 11:03 Pulse 76 06/27/21 11:03 Resp 18 06/27/21 11:03 BP 111/72 06/27/21 11:03 Pulse Ox 94 06/27/21 11:03 Oxygen Flow Rate 6 06/25/21 14:54 BMI result Body Mass Index 29.6 General: AO X 3, mild dyspnea Resp: Crackles bilateral, mild accessory muscles used CVS: S1,S2,RRR GI: soft, non tender, non distended Neuro: motor grossly intact, alert Psych: appropriate affect, appropriate insight Objective Data Active Medications Acetaminophen (Acetaminophen 325 Mg Tablet) 650 mg PO Q6H PRN PRN Reason: Pain, Mild (Pain Scale 1-3) Albuterol Sulfate (Albuterol Sulfate 90 Mcg 8 Gm Inhaler) 2 puff INHALE Q4H PRN PRN Reason: dyspnea Dexamethasone Sodium Phosphate (Dexamethasone Sod Phosphate 4 Mg/Ml Vial) 6 mg IVPUSH DAILY [facility] Enoxaparin Sodium (Enoxaparin Sodium 40 Mg/0.4 Ml Syringe) 40 mg SUBCUT Q24H [facility] Last Admin: 06/26/21 21:13 Dose: 40 mg Documented by: MARIELLA Guaifenesin (Guaifenesin 200 Mg/10 Ml 10 Ml Liquid) 10 ml PO Q6H PRN PRN Reason: cough Last Admin: 06/26/21 23:52 Dose: 10 ml Documented by: MARIELLA Melatonin (Melatonin 3 Mg Tablet) 6 mg PO BEDTIME PRN PRN Reason: Insomnia Last Admin: 06/26/21 23:52 Dose: 6 mg Documented by: MARIELLA Morphine Sulfate (Morphine Sulfate 4 Mg/Ml Cartridge) 1 mg IVPUSH Q4H PRN; Protocol PRN Reason: Pain, SOB Pharmacy Consult (Consult Rx Perform Med Rec) 1 each MISCELLANE ONCE PRN PRN Reason: Consult order Senna (Sennosides 8.6 Mg Tablet) 17.2 mg PO BEDTIME PRN PRN Reason: Constipation Sodium Chloride (0.9 % Sodium Chloride Flush 3 Ml Syringe) 3 ml IVFLUSH QSHIFT [facility] Last Admin: 06/26/21 23:52 Dose: 3 ml Documented by: PRECIOUSDC Labs CBC & Chem 7: 06/27/21 06:06 06/27/21 06:06 Labs: Laboratory Results - last 24 hr 06/27/21 06/27/21 06/27/21 06:06 06:06 06:06 MCV 89.3 MCH 29.0 MCHC 32.5 RDW 13.0 Plt Count 488 H MPV 9.2 L Absolute Nucleated RBC 0.000 Nucleated RBC % (auto) 0.0 D-Dimer High Sensitivty 210 Anion Gap 13 Estim Creat Clear Calc 123.1 Estimated GFR > 60 Fasting Glucose 139 H Calcium 8.7 Lactate Dehydrogenase 413 H C-Reactive Protein 4.94 H Microbiology Microbiology Results: Microbiology 06/25/21 15:27 Blood Culture - Final Blood - Venous Coag negative Staphylococcus 06/25/21 15:27 Blood Culture - Preliminary Blood - Venous No growth after 24 hours. Assessment and Plan (1) Pneumonia due to 2019-nCoV: Status: Acute Assessment and Plan: 45M with known COVID, presented with sob Acute hypoxic respiratory failure secondary to COVID pneumonia Continue dexamethasone day 2 O2 support - wean as tolerated No evidence of bacterial superinfection will discontinue antibiotics coag negative staph contaminant, dc vanco DVT prophylaxis with Lovenox Quality Stroke Does the patient have a stroke diagnosis?: No VTE Prior VTE?: No VTE Risk Level:: Medical - moderate - high VTE Device Contraindication: Treatment Not Indicated VTE Drug Contraindication: N/A - Med Ordered
[2021-06-27] MEDS: 0.9 % Sodium Chloride Flush 3 ML SYRINGE IVFLUSH ×2 (16:31→20:09)
[2021-06-27] MEDS: Enoxaparin Sodium 40 MG/0.4 ML SYRINGE SUBCUT (20:09)
[2021-06-27] MEDS: guaiFENesin 200 MG/10 ML 10 ML LIQUID PO (23:54)
[2021-06-27] MEDS: Melatonin 3 MG TABLET 6 MG PO (23:54)
[2021-06-28 02:58] VITALS: PULSE 57; O2SAT 95
[2021-06-28 08:00] VITALS: BP 151/89; PULSE 60; RESP 20; TEMP 36.2; O2SAT 95
[2021-06-28] MEDS: dexAMETHasone sod phosphate 4 MG/ML VIAL 6 MG IVPUSH (09:51)
[2021-06-28] MEDS: 0.9 % Sodium Chloride Flush 3 ML SYRINGE IVFLUSH (09:51)
--- NOTE | 2021-06-28 10:22 | P.PNIM_ITS ---
Subjective Subjective Date of Service: 06/28/21 Interval History: cc: sob interval hsitory: weak, improving sob Cardiovascular Cardiovascular: Reports no additional cardiovascular complaints Genitourinary Genitourinary: Reports no additional male genitourinary complaints Physical Exam Vital Signs: Vital Signs: Last Vital Signs Temp 97.1 F 06/28/21 08:00 Pulse 60 06/28/21 08:00 Resp 20 06/28/21 08:00 BP 151/89 H 06/28/21 08:00 Pulse Ox 95 06/28/21 08:00 Oxygen Flow Rate 6 06/25/21 14:54 BMI result Body Mass Index 29.6 General: AO X 3, fatigued Resp:? Crackles bilateral, mild accessory muscles used CVS: S1,S2,RRR GI: soft, non tender, non distended Neuro:? motor grossly intact, alert Psych: appropriate affect, appropriate insight? Objective Data Active Medications Acetaminophen (Acetaminophen 325 Mg Tablet) 650 mg PO Q6H PRN PRN Reason: Pain, Mild (Pain Scale 1-3) Albuterol Sulfate (Albuterol Sulfate 90 Mcg 8 Gm Inhaler) 2 puff INHALE Q4H PRN PRN Reason: dyspnea Dexamethasone Sodium Phosphate (Dexamethasone Sod Phosphate 4 Mg/Ml Vial) 6 mg IVPUSH DAILY [facility] Last Admin: 06/28/21 09:51 Dose: 6 mg Documented by: JOSE Enoxaparin Sodium (Enoxaparin Sodium 40 Mg/0.4 Ml Syringe) 40 mg SUBCUT Q24H [facility] Last Admin: 06/27/21 20:09 Dose: 40 mg Documented by: MARIELLA Guaifenesin (Guaifenesin 200 Mg/10 Ml 10 Ml Liquid) 10 ml PO Q6H PRN PRN Reason: cough Last Admin: 06/27/21 23:54 Dose: 10 ml Documented by: MARIELLA Melatonin (Melatonin 3 Mg Tablet) 6 mg PO BEDTIME PRN PRN Reason: Insomnia Last Admin: 06/27/21 23:54 Dose: 6 mg Documented by: MARIELLA Morphine Sulfate (Morphine Sulfate 4 Mg/Ml Cartridge) 1 mg IVPUSH Q4H PRN; Protocol PRN Reason: Pain, SOB Pharmacy Consult (Consult Rx Perform Med Rec) 1 each MISCELLANE ONCE PRN PRN Reason: Consult order Senna (Sennosides 8.6 Mg Tablet) 17.2 mg PO BEDTIME PRN PRN Reason: Constipation Sodium Chloride (0.9 % Sodium Chloride Flush 3 Ml Syringe) 3 ml IVFLUSH QSHIFT [facility] Last Admin: 06/28/21 09:51 Dose: 3 ml Documented by: JOSE Labs CBC & Chem 7: 06/27/21 06:06 06/27/21 06:06 Microbiology Microbiology Results: Microbiology 06/25/21 15:27 Blood Culture - Preliminary Blood - Venous No growth after 48 hours. 06/25/21 15:27 Blood Culture - Final Blood - Venous Coag negative Staphylococcus Assessment and Plan (1) Pneumonia due to 2019-nCoV: Status: Acute Assessment and Plan: 45M with known COVID, presented with sob Acute hypoxic respiratory failure secondary to COVID pneumonia Continue dexamethasone day 3 O2 support - wean as tolerated, now down to 3L, will try to wean off today coag negative staph contaminant DVT prophylaxis with Lovenox Quality Stroke Does the patient have a stroke diagnosis?: No VTE Prior VTE?: No VTE Risk Level:: Medical - moderate - high VTE Device Contraindication: Treatment Not Indicated VTE Drug Contraindication: N/A - Med Ordered
--- NOTE | 2021-06-28 11:24 | MHC.CM.PN ---
Per ROUNDS discussion, Patient is not yet medically cleared for dc (IV Decadron, 3LO2/need to wean off O2). Home is the goal for dc and CM will follow for possible need to adjust the dc plan.
[2021-06-28 12:00] VITALS: BP 129/81; PULSE 62; RESP 22; TEMP 36.6; O2SAT 93
[2021-06-28 15:25] VITALS: BP 160/81; PULSE 58; RESP 20; TEMP 36.4; O2SAT 94
[2021-06-28 19:19] VITALS: BP 130/76; PULSE 66; RESP 20; TEMP 37; O2SAT 91
[2021-06-28] MEDS: Melatonin 3 MG TABLET 6 MG PO (21:28)
[2021-06-28] MEDS: guaiFENesin 200 MG/10 ML 10 ML LIQUID PO (21:29)
[2021-06-28 23:22] VITALS: BP 127/80; PULSE 61; RESP 20; TEMP 36.5; O2SAT 92
[2021-06-29] MEDS: 0.9 % Sodium Chloride Flush 3 ML SYRINGE IVFLUSH
[2021-06-29 03:20] VITALS: BP 136/89; PULSE 58; RESP 20; TEMP 36.4; O2SAT 94
[2021-06-29 06:49] LABS: Hematocrit 45.7 % (42.0-52.0); Hemoglobin 14.8 g/dl (14.0-18.0); Mean Corpuscular HGB Conc 32.4 g/dl (31.0-36.0); Mean Corpuscular Hemoglobin 28.6 pg (27.0-33.0); Mean Corpuscular Volume 88.2 fL (80.0-98.0); Mean Platelet Volume 8.8 fL (9.4-12.4); Platelet Count 615 X10*3/uL (160-400); Red Blood Count 5.18 X10*6/uL (4.60-5.80); Red Cell Distribution Width 12.7 % (11.0-16.0); White Blood Count 10.9 X10*3/uL (4.8-10.8)
[2021-06-29 07:03] LABS: Anion Gap 14 (12-20); Blood Urea Nitrogen 24 mg/dL (9-16); Calcium 9.1 mg/dL (8.4-10.2); Carbon Dioxide 27 mmol/L (22-29); Chloride 105 mmol/L (96-108); Creatinine Clr Calc Pharmacy 126.2; Estimated Glomerular Filt Rate > 60; Glucose Fasting 83 mg/dL (60-99); Potassium 4.8 mmol/L (3.3-5.1); Sodium 141 mmol/L (135-145)
[2021-06-29 08:00] VITALS: BP 124/84; PULSE 62; RESP 20; TEMP 36.2; O2SAT 93
--- NOTE | 2021-06-29 09:37 | PM.DS ---
DS: Providers Provider Date of Service: 06/29/21 Date of admission: 06/25/21 19:53 Primary care physician: Vincent Antonio MD Consults: 06/25/21 19:55 Consult to Infectious Diseases Routine Consulting Provider: Danielle Lamb Reason for consultation: COVID PNA DS: Diagnosis Discharge Diagnosis (1) Pneumonia due to 2019-nCoV: Status: Acute DS: Summary Hospital Course Hospital Course: Patient was admitted for acute hypoxic respiratory failure secondary to COVID pneumonia. He was treated with dexamethasone. Oxygen was weaned down to room air and patient maintained saturation. He is feeling better, as inflammatory markers have improved. He will be discharged home with prednisone taper. Time Spent with Patient Time attestation: Total time spent providing and/or coordinating discharge services: Discharge coordination time: Greater than 30 minutes Quality: Stroke Does the patient have a stroke diagnosis?: No Physical Exam Vital Signs: Vital Signs: Last Vital Signs Temp 97.1 F 06/29/21 08:00 Pulse 62 06/29/21 08:00 Resp 20 06/29/21 08:00 BP 124/84 06/29/21 08:00 Pulse Ox 93 06/29/21 08:00 Oxygen Flow Rate 6 06/25/21 14:54 BMI result Body Mass Index 29.6 General: AO X 3, no acute distress Resp: CTA bilateral, no accessory muscles used CVS: S1,S2,RRR GI: soft, non tender, non distended Neuro: motor grossly intact, alert Psych: appropriate affect, appropriate insight DS: Data Data Completed and Pending Labs on day of discharge: Laboratory Results - last 24 hr 06/29/21 06/29/21 06:15 06:15 WBC 10.9 H RBC 5.18 Hgb 14.8 Hct 45.7 MCV 88.2 MCH 28.6 MCHC 32.4 RDW 12.7 Plt Count 615 H D MPV 8.8 L Absolute Nucleated RBC 0.000 Nucleated RBC % (auto) 0.0 Sodium 141 Potassium 4.8 Chloride 105 Carbon Dioxide 27 Anion Gap 14 BUN 24 H Creatinine 0.79 Estim Creat Clear Calc 126.2 Estimated GFR > 60 Fasting Glucose 83 D Calcium 9.1 Preliminary micro results at discharge 06/25/21 15:27 Blood Culture - Preliminary Blood - Venous No growth after 48 hours. Discharge Plan Discharge Patient Disposition: Home, Self-Care Discharge Diagnosis: covid Referrals: Vincent Antonio MD [Primary Care Provider] - 1 Week Discharge Medications: New guaifenesin 100 mg/5 mL Liquid 200 mg PO Q6H PRN (Reason: cough) Qty: 500 RF: 0 prednisone 20 mg tablet 40 mg PO DAILY Qty: 15 RF: 0 Continued acetaminophen 500 mg Tablet 500 mg PO Q8H PRN (Reason: PAIN/FEVER) RF: 0 ibuprofen 200 mg Tablet 600 mg PO Q8H PRN (Reason: PAIN/FEVER) RF: 0 albuterol sulfate 90 mcg/actuation HFA aerosol inhaler 2 puff PO Q4H PRN (Reason: dyspnea) RF: 0 ondansetron 4 mg tablet,disintegrating 1 tab PO Q8H PRN (Reason: nausea/vomiting) RF: 0 Breo Ellipta 100-25 mcg/dose blister with device 1 puff PO BEDTIME RF: 0 Discharge Orders: Discharge Order (Routine); Ordered 06/29/21 Ordered By: Raymond Ospina Diet: advance to usual diet Activity on Discharge: As tolerated Stand Alone Forms: Patient Portal Discharge page Care Plan Goals: recovery Health Concerns: covid Plan of Treatment: prednisone taper as prescribed, return to ED if o2 saturation under 90% Assessment: see above
--- NOTE | 2021-06-29 09:42 | MHC.CM.PN ---
PT CLEARED TO DC HOME TODAY. PER CM NOTES, PTS GF TO TRANSPORT
== END 2021-06-29 12:14 | disposition home or self-care (01) | DRG 177 ==
LOC: HO.ED 16:26 → HO.EDOVER 20:12 → HO.IMC 06-26 16:08
PROVIDERS: Admitting Provider Hospitalist; Emergency Provider Emergency Medicine; PCP Family Medicine; Visit Provider Internal Medicine
DX: U07.1 COVID-19 (principal); J12.82 Pneumonia due to coronavirus disease 2019; J96.01 Acute respiratory failure with hypoxia; Z79.1 Long term (current) use of non-steroidal anti-inflammatories (NSAID); Z79.899 Other long term (current) drug therapy
CPT/HCPCS: 36415; 71045; 71275; 80048; 80076; 82550; 82728; 82803; 83605; 83615; 83735; 84145; 84484; 85025; 85027; 85379; 85610; 85730; 86140; 87040; 87147; 87205; 87635; 93005; 96365; 96367; 96375; 99285; 99291; J0456; J0696; J1100; J1650; J2543; J3370; J8540; Q9967